=== PATIENT | male | born 1980 ===

== ENCOUNTER 2016-12-23 08:39 | Emergency (ER) | payer BC, OTHER ==
[2016-12-23 08:48] VITALS: BMI 32.5
[2016-12-23 08:49] VITALS: BP 130/82; PULSE 59; RESP 19; TEMP 97.6; O2SAT 100
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
[2016-12-23] MEDS ORDERED: diaZEpam 10 mg/2 ml Inj IM ONE (09:12)
== END 2016-12-23 10:46 | disposition home or self-care (01) ==
LOC: H.ER 08:39
DX: M54.9 Dorsalgia, unspecified (principal); E78.00 Pure hypercholesterolemia, unspecified